=== PATIENT | female | born 2000 | race Caucasian/White ===

== ENCOUNTER 2020-01-19 13:09 | Emergency (ER) | payer BC, SELFPAY ==
[2020-01-19 13:16] VITALS: BP 128/85; PULSE 110; RESP 18; TEMP 36.1; O2SAT 100
--- NOTE | 2020-01-19 13:25 | ED.GENADULT ---
HPI - General Adult General Chief complaint: Skin/Abscess/Foreign Body Stated complaint: ABSCESS UNDER R ARMPIT Time Seen by Provider: 01/19/20 13:25 Source: patient Mode of arrival: ambulatory Limitations: no limitations History of Present Illness HPI narrative: 19-year-old female patient presents to the [facility] with complaints of a wound to the right armpit. Patient states she had a small cyst there for the past couple of years however in the last couple of days and is gotten increasingly big, with redness and increase in pain. Denies any fevers, body aches or chills. Related Data Allergies Allergy/AdvReac Type Severity Reaction Status Date / Time No Known Allergies Allergy Verified 01/19/20 13:12 Review of Systems Review of Systems: Narrative: CONSTITUTIONAL: Denies fever, chills, or sweats. EYES: Denies visual changes, redness, or discharge. ENT: Denies rhinorrhea, congestion, sore throat, or otalgia. CARDIOVASCULAR: Denies chest pain, palpitations, or edema. RESPIRATORY: Denies cough or dyspnea. GASTROINTESTINAL: Denies abdominal pain, nausea, vomiting, or diarrhea. GENITOURINARY: Denies dysuria or hematuria. SKIN: Denies rash or itching. Positive abscess to right under arm x2 to 3 days MUSCULOSKELETAL: Denies back pain, joint pain, or myalgia. NEUROLOGIC: Denies headache, numbness, or weakness. PSYCHIATRIC: Denies anxiety or depression. 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 There is no relevant family history pertinent to the presenting complaint. Exam Narrative: Exam Narrative: GENERAL: Well-appearing, well-nourished, and in no acute distress. HEAD: Normocephalic, atraumatic. EYES: PERRLA and EOMI. ENT: Nares clear, no rhinorrhea or epistaxis. Mucous membranes moist. NECK: Supple. No lymphadenopathy CHEST: Clear to auscultation. No respiratory distress. HEART: Regular rate and rhythm. No murmur heard. Normal peripheral pulses. ABDOMEN: Soft, nontender, nondistended, normal active bowel sounds. EXTREMITIES: Normal range of motion. No edema. SKIN: Warm, dry, no rash. Patient has approximately 1 cm in diameter abscess wound that is raised to the right axilla. It is tender to the touch nor warmth noted. NEURO: No focal deficits. Alert and oriented x3. Course Vital Signs Vital signs: Vital Signs Temperature 36.1 C L 01/19/20 13:16 Pulse Rate 110 H 01/19/20 13:16 Respiratory Rate 18 01/19/20 13:16 Blood Pressure 128/85 01/19/20 13:16 Pulse Oximetry 100 01/19/20 13:16 Temperature 36.1 C L 01/19/20 13:16 Pulse Rate 110 H 01/19/20 13:16 Respiratory Rate 18 01/19/20 13:16 Blood Pressure 128/85 01/19/20 13:16 Pulse Oximetry 100 01/19/20 13:16 Vital signs reviewed. Procedures Abscess I/D upper extremity: Date of Incision: 01/19/20 Time of Incision: 13:30 Side (if applicable): right Sedation/analgesia: none Local Anesthetic: lidocaine 1% Amount of anesthesia used (mL): 2 Technique: incised with #11 blade Irrigation: Yes Packing used?: none I&D Results: Blood Abcess I&D Additional Comments: The procedure was explained and verbal consent is obtained. The wound was anesthetized with 2ml of 1% lidocaine with good anesthesia. Sterile drape and prep are done. The fluctuant center was incised with #11 blade scalpel. A small amount of blood was expressed. The wound was probed for loculated area and irrigated with normal saline. Wound was left open. Dressing was applied. The patient tolerated the procedure well. Medical Decision Making Dif
--- NOTE | 2020-01-19 13:43 | PC.NURSE ---
I&D completed by COOKER SODA pt tolerated well and culture obtained and sent.
== END 2020-01-19 13:51 | disposition home or self-care (01) ==
PROVIDERS: Emergency Provider Nurse Practitioner Family
DX: L02.411 Cutaneous abscess of right axilla (principal); F90.9 Attention-deficit hyperactivity disorder, unspecified type
CPT/HCPCS: 10060; 87070; 87075; 87147; 87186; 87205; 99213; G0463